=== PATIENT | female | born 1940 | race African-American/Black ===

== ENCOUNTER 2017-10-20 14:12 | Emergency (ER) | payer MEDICARE, OTHER ==
[~2017-10-20] VITALS: Ht 162.6 cm; Wt 52.0 kg
[2017-10-20] MEDS ORDERED: ACETAMINOPHEN 325MG TABLET PO ONE (17:00)
[2017-10-20 17:02] LABS: BASOPHILS % 0.8 % (0.0-2.0); EOSINOPHILS % 3.7 % (0.0-5.0); HEMATOCRIT. 36.8 % (36.0-48.0); HEMOGLOBIN. 12.7 g/dL (12.0-16.0); LYMPHOCYTES % 39.2 % (20.0-50.0); MEAN CORPUSCULAR HEMOGLOBIN 34.9 pg (28.0-32.0); MEAN CORPUSCULAR VOLUME 101.2 fL (81.0-99.0); MEAN PLATELET VOLUME 6.6 fl (7.4-10.4); NEUTROPHILS % 50.3 % (40.0-76.0); PLATELET 213 x1000/uL (130-400); RED BLOOD CELL COUNT 3.63 mill/uL (4.2-5.4); RED CELL DISTRIBUTION WIDTH 13.6 % (11.6-14.6)
[2017-10-20 17:11] LABS: INR 1.1; PARTIAL THROMBOPLASTIN TIME 24.3 sec (23.4-31.0); PROTHROMBIN TIME 11.4 sec (9.4-11.6)
[2017-10-20 17:12] LABS: CHLORIDE 107 mEq/L (98-107)
[2017-10-20 21:46] VITALS: BP 123/67
== END 2017-10-20 21:57 | disposition home or self-care (01) ==
LOC: ER 14:12
DX: M25.512 Pain in left shoulder (principal); M54.2 Cervicalgia; R51 Headache; R07.89 Other chest pain; M25.552 Pain in left hip; V43.52XA Car driver injured in collision with other type car in traffic accident, initial encounter; Y93.89 Activity, other specified; Y92.89 Other specified places as the place of occurrence of the external cause; Y99.8 Other external cause status
CPT/HCPCS: 36415; 70450; 71045; 72125; 73030; 73502; 80053; 83690; 84484; 85025; 85610; 85730; 93005; 99285; J7030